=== PATIENT | male | born 1980 | race Two or more races ===

== ENCOUNTER 2022-09-05 21:17 | Emergency (ER) | payer OTHER ==
[~2022-09-05] VITALS: Ht 165.1 cm; Wt 68.0 kg
== END 2022-09-05 23:59 | disposition home or self-care (01) ==
LOC: ER 21:17
DX: R30.0 Dysuria (principal); Z88.6 Allergy status to analgesic agent; Z88.1 Allergy status to other antibiotic agents; Z88.0 Allergy status to penicillin